=== PATIENT | female | born 1970 | race Caucasian/White ===

== ENCOUNTER → 2016-06-30 | Outpatient (REF) | payer BC ==
[2016-07-02 00:08] LABS: ENDOMYSIAL ABY IgA Negative (Negative)
== END ==
LOC: M LAB REF 13:14
PROVIDERS: ATTEND Nurse Practitioner Family
DX: R79.82 Elevated C-reactive protein (CRP) (principal); L50.9 Urticaria, unspecified

== ENCOUNTER → 2016-08-01 | Outpatient (REF) | payer BC | LOC: M LAB REF 16:44 | PROVIDERS: ATTEND Nurse Practitioner Family | DX: L50.1 Idiopathic urticaria (principal); M72.2 Plantar fascial fibromatosis ==

== ENCOUNTER → 2016-12-02 | Outpatient (REF) | payer BC | LOC: M SFHCWAGY 12:02 | PROVIDERS: ATTEND Nurse Practitioner Women's Health | DX: Z12.4 Encounter for screening for malignant neoplasm of cervix (principal) ==

== ENCOUNTER → 2016-12-13 | Outpatient (CLI) | payer BC ==
--- NOTE | 2016-12-13 15:45 | REPMRS ---
Patient History The patient states she had a clinical breast exam in 11/2016. No known family history of cancer. Taking hormonal contraceptives for 13 years. Digital Woman Screen Mammo: December 13, 2016 - Exam #: [id number] Bilateral CC and MLO view(s) were taken. Technologist: Isabel Javed, Technologist Prior study comparison: September 11, 2015, digital woman screen mammo performed at [facility] to [facility]. August 08, 2014, digital woman screen mammo performed at [facility]. June 04, 2012, digital woman screen mammo performed at [facility] to [facility]. FINDINGS: There are scattered fibroglandular densities. There has been no change in the appearance of the mammogram from the prior studies. There is a mild amount of scattered fibroglandular density which is fairly symmetric. There is no interval development of dominant mass, architectural distortion, or clustered microcalcification suggestive of malignancy. ASSESSMENT: BI-RADS/ACR category 1 mammogram. Negative. Recommendation Routine screening mammogram in 1 year (for women over age 40). This mammogram was interpreted with the aid of an FDA-approved computer-aided dectection system. Electronically Signed By: Gareth Love MD 12/13/16 [id number]
== END ==
LOC: M WHC 14:26
PROVIDERS: ATTEND Nurse Practitioner Women's Health
DX: Z12.31 Encounter for screening mammogram for malignant neoplasm of breast (principal)

== ENCOUNTER → 2022-04-07 | Outpatient (REF) | payer BC | LOC: M PLALAB 16:19 | PROVIDERS: ATTEND Nurse Practitioner Family | DX: Z12.4 Encounter for screening for malignant neoplasm of cervix (principal) ==

== ENCOUNTER → 2022-04-07 | Outpatient (CLI) | payer BC | LOC: M WHC 13:56 | PROVIDERS: ATTEND Nurse Practitioner Family | DX: Z12.31 Encounter for screening mammogram for malignant neoplasm of breast (principal) ==

== ENCOUNTER → 2022-04-11 | Outpatient (CLI) | payer BC | LOC: M LABSMTC 10:30 | PROVIDERS: ATTEND Anesthesiology | DX: Z01.812 Encounter for preprocedural laboratory examination (principal); Z11.52 Encounter for screening for COVID-19 ==

== ENCOUNTER 2022-04-15 08:14 | Day surgery (SDC) | payer BC ==
[~2022-04-15] VITALS: Ht 170.2 cm; Wt 93.4 kg
[~2022-04-15 08:14] MED LIST: NS 1,000 ML IV ONE
[2022-04-15] MEDS ORDERED: propofoL 200 MG/20 ML VIAL As Ordered ONE (10:05)
[2022-04-15 10:45] VITALS: BP 134/80
== END 2022-04-15 10:52 | disposition home or self-care (01) ==
LOC: M OPP 08:14
PROVIDERS: ATTEND Internal Medicine Gastroenterology
DX: Z12.11 Encounter for screening for malignant neoplasm of colon (principal); D12.4 Benign neoplasm of descending colon; K64.8 Other hemorrhoids; K57.30 Diverticulosis of large intestine without perforation or abscess without bleeding

== ENCOUNTER → 2023-12-25 | Outpatient (REF) | payer BC ==
[2023-12-25 17:10] LABS: APPEARANCE, URINE HAZY (CLEAR); BACTERIA, URINE AUTO NEGATIVE (NEGATIVE); BILIRUBIN, URINE AUTO NEGATIVE (NEGATIVE); BLOOD, URINE BLOOD NEGATIVE (NEGATIVE); CALCIUM OXALATE CRYSTALS MODERATE; COLOR, URINE YELLOW (YELLOW); GLUCOSE, URINE (UA) AUTO NEGATIVE (NEGATIVE); KETONE, URINE AUTO NEGATIVE (NEGATIVE); LEUKOCYTE ESTERASE, URINE AUTO NEGATIVE (NEGATIVE); MUCUS, URINE SMALL (NEGATIVE); NITRITE, URINE AUTO NEGATIVE (NEGATIVE); PROTEIN, URINE AUTO NEGATIVE (NEGATIVE); RBC, URINE AUTO 2 /HPF (0-3); SPECIFIC GRAVITY URINE AUTO 1.029 (1.002-1.035); SQUAMOUS EPITHELIAL CELL UR AU 0 /HPF (0-6); UROBILINOGEN, URINE AUTO 0.2 mg/dL (0.0-2.0); WBC, URINE AUTO 3 /HPF (0-3)
== END ==
LOC: M LAB REF 16:10
PROVIDERS: ATTEND Physician Assistant
DX: N39.0 Urinary tract infection, site not specified (principal)

== ENCOUNTER → 2025-04-30 | Outpatient (REF) | payer BC ==
[2025-05-02 17:27] LABS: HPV APTIMA Not Detected (Not Detected)
== END ==
LOC: M SFHCWAGY 10:18
PROVIDERS: ATTEND Nurse Practitioner Family
DX: Z12.4 Encounter for screening for malignant neoplasm of cervix (principal); Z77.9 Other contact with and (suspected) exposures hazardous to health; R87.610 Atypical squamous cells of undetermined significance on cytologic smear of cervix (ASC-US)

== ENCOUNTER → 2025-04-30 | Outpatient (CLI) | payer BC | LOC: M WHC 07:58 | PROVIDERS: ATTEND Nurse Practitioner Family | DX: Z12.31 Encounter for screening mammogram for malignant neoplasm of breast (principal); R92.313 Mammographic fatty tissue density, bilateral breasts ==